=== PATIENT | female | born 2005 | race Caucasian/White ===

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

== ENCOUNTER 2023-04-18 18:19 | Emergency (ER) | payer OTHER ==
[2023-04-18 18:26] VITALS: BP 135/87; PULSE 98; RESP 20; TEMP 98.3; BMI 36.9
[2023-04-18] MEDS ORDERED: predniSONE 10 MG TABLET (UD) PO ONE (19:31)
[2023-04-18] MEDS ORDERED: valACYclovir HCL 500 MG TABLET (FP) PO ONE (19:31)
[2023-04-18] MEDS ORDERED: predniSONE 10 MG TABLET (UD) ONE (19:32)
[2023-04-18] MEDS ORDERED: valACYclovir HCL 500 MG TABLET (FP) ONE (19:32)
[2023-04-18] MEDS ORDERED: predniSONE 20 MG TABLET (UD) ONE (19:33)
== END 2023-04-18 19:46 | disposition home or self-care (01) ==
LOC: JER 18:19
DX: G51.0 Bell's palsy (principal); R20.2 Paresthesia of skin; H91.91 Unspecified hearing loss, right ear; R43.9 Unspecified disturbances of smell and taste
CPT/HCPCS: 99283-25

== ENCOUNTER 2024-01-17 18:27 | Emergency (ER) | payer OTHER ==
[2024-01-17 18:45] VITALS: BP 153/74; PULSE 81; RESP 17; TEMP 97.8; BMI 42.8
[2024-01-17] MEDS ORDERED: METOCLOPRAMIDE HCL INJECTION 10 MG/2 ML VIAL ONE (19:45)
[2024-01-17] MEDS ORDERED: ACETAMINOPHEN INJECTION 100 ML IVPB ONE (19:46)
[2024-01-17] MEDS: ACETAMINOPHEN 1000 MG/100 ML BAG IVPB ONE (20:17)
[2024-01-17] MEDS: METOCLOPRAMIDE HCL INJECTION 10 MG/2 ML VIAL IVPB ONE (20:17)
[2024-01-17] MEDS: SODIUM CHLORIDE 0.9% 500 ML INFUS.BAG IV ONE (20:17)
[2024-01-17 20:22] LABS: BASO % 0.5 % (0-2.0); EOS % 2.8 % (0-4.5); HEMATOCRIT 36.4 % (32.4-45.2); HEMOGLOBIN 12.5 GM/dL (10.7-15.3); LYMPH % 31.4 % (8-40); MCH 24.8 pg (25.7-33.7); MCHC 34.2 g/dl (32.0-36.0); MEAN CELL VOLUME 72.5 fl (80-96); MEAN PLT VOLUME 6.9 fl (7.5-11.1); MONO % 5.7 % (3.8-10.2); NEUT % 59.6 % (42.8-82.8); PLATELET COUNT 386 10^3/uL (134-434); RBC 5.02 M/mm3 (3.60-5.2); RDW 14.7 % (11.6-15.6); WHITE BLOOD COUNT 8.7 K/mm3 (4.0-10.0)
[2024-01-17 20:55] LABS: POTASSIUM 3.9 mmol/L (3.5-5.1)
[2024-01-17 20:57] LABS: ALBUMIN 3.8 g/dl (3.4-5.0); BLOOD UREA NITROGEN 9.9 mg/dL (7-18); CALCIUM 9.5 mg/dL (8.5-10.1)
[2024-01-17 21:00] LABS: CREATININE 0.7 mg/dL (0.55-1.3)
[2024-01-17 21:02] LABS: BILIRUBIN,TOTAL 0.3 mg/dL (0.2-1); TOT PROT 9.2 g/dl (6.4-8.2)
== END 2024-01-17 21:46 | disposition home or self-care (01) ==
LOC: JER 18:27
PROC: 3E030NZ Introduction of Analgesics, Hypnotics, Sedatives into Peripheral Vein, Open Approach (ICD-10-PCS; principal; 2024-01-17)
PROC: 3E030GC Introduction of Other Therapeutic Substance into Peripheral Vein, Open Approach (ICD-10-PCS; 2024-01-17)
DX: R51.9 Headache, unspecified (principal); H53.8 Other visual disturbances
CPT/HCPCS: 36415; 80053; 84703; 85025; 99284-25; J0131

== ENCOUNTER 2024-01-22 11:24 | Emergency (ER) | payer OTHER ==
[2024-01-22 11:35] VITALS: TEMP 98.5; BMI 42.8
[2024-01-22] MEDS ORDERED: methylPREDNISolone NA SUCC 125 MG/2 ML VIAL ONE (12:48)
[2024-01-22] MEDS ORDERED: FAMOTIDINE 20 MG/50 ML IVPB 20 MG/50 ML MG IVPB ONE (12:49)
[2024-01-22 13:13] LABS: BASO % 0.3 % (0-2.0); EOS % 0.4 % (0-4.5); HEMATOCRIT 41.5 % (32.4-45.2); HEMOGLOBIN 13.9 GM/dL (10.7-15.3); LYMPH % 17.4 % (8-40); MCH 24.1 pg (25.7-33.7); MCHC 33.4 g/dl (32.0-36.0); MEAN PLT VOLUME 7.3 fl (7.5-11.1); MONO % 2.6 % (3.8-10.2); NEUT % 79.3 % (42.8-82.8); PLATELET COUNT 429 10^3/uL (134-434); RBC 5.76 M/mm3 (3.60-5.2); RDW 15.3 % (11.6-15.6); WHITE BLOOD COUNT 13.7 K/mm3 (4.0-10.0)
[2024-01-22] MEDS: FAMOTIDINE 20 MG/50 ML IVPB 20 MG/50 ML MG IVPB ONE (13:15)
[2024-01-22] MEDS: LACTATED RINGERS SOLUTION 1000 ML INFUS.BAG IV ONE (13:15)
[2024-01-22] MEDS: methylPREDNISolone NA SUCC 125 MG/2 ML VIAL IVPUSH ONE (13:15)
[2024-01-22 13:25] LABS: EPI CELLS >36 /uL (0-25.1); HYALINE CASTS 0 /uL (0-3.1); PH,URINE 5.5 (5.0-8.0); URINE APPEARANCE CLOUDY; URINE BACTERIA 126 /uL (0-1359); URINE BILIRUBIN NEGATIVE (NEGATIVE); URINE COLOR YELLOW; URINE GLUCOSE (UA) NEGATIVE (NEGATIVE); URINE KETONE TRACE (NEGATIVE); URINE LEUK ESTERASE TRACE (NEGATIVE); URINE NITRITE NEGATIVE (NEGATIVE); URINE PROTEIN TRACE (NEGATIVE); URINE RBC 26 /uL (0-23.9); URINE UROBILINOGEN 0.2 mg/dL (0.2-1.0); URINE WBC 42 /uL (0-25.8)
[2024-01-22 13:30] LABS: POTASSIUM 4.4 mmol/L (3.5-5.1)
[2024-01-22 13:31] LABS: CALCIUM 9.5 mg/dL (8.5-10.1)
[2024-01-22 13:32] LABS: ALBUMIN 3.8 g/dl (3.4-5.0); BLOOD UREA NITROGEN 10.4 mg/dL (7-18); MAGNESIUM 2.2 mg/dL (1.8-2.4)
[2024-01-22 13:35] LABS: CREATININE 0.7 mg/dL (0.55-1.3)
[2024-01-22 13:37] LABS: BILIRUBIN,TOTAL 0.4 mg/dL (0.2-1); TOT PROT 9.1 g/dl (6.4-8.2)
[2024-01-22 14:11] VITALS: BP 126/58; PULSE 92; RESP 19
== END 2024-01-22 14:56 | disposition home or self-care (01) ==
LOC: JERFT 11:24
PROC: 3E033GC Introduction of Other Therapeutic Substance into Peripheral Vein, Percutaneous Approach (ICD-10-PCS; principal; 2024-01-22)
PROC: 3E033GC Introduction of Other Therapeutic Substance into Peripheral Vein, Percutaneous Approach (ICD-10-PCS; 2024-01-22)
PROC: 3E033GC Introduction of Other Therapeutic Substance into Peripheral Vein, Percutaneous Approach (ICD-10-PCS; 2024-01-22)
DX: R21 Rash and other nonspecific skin eruption (principal); M79.89 Other specified soft tissue disorders; R11.0 Nausea; R19.7 Diarrhea, unspecified; L50.9 Urticaria, unspecified
CPT/HCPCS: 36415; 80053; 81003; 83735; 85025; 87086; 87186; 99284-25

== ENCOUNTER 2024-01-24 08:47 | Emergency (ER) | payer OTHER ==
[2024-01-24 08:54] VITALS: RESP 18; BMI 40.6
[2024-01-24] MEDS ORDERED: FAMOTIDINE 20 MG/50 ML IVPB 20 MG/50 ML MG IVPB ONE (09:12)
[2024-01-24] MEDS ORDERED: methylPREDNISolone NA SUCC 125 MG/2 ML VIAL ONE (09:12)
[2024-01-24] MEDS: methylPREDNISolone NA SUCC 125 MG/2 ML VIAL IVPB ONE (09:23)
[2024-01-24] MEDS: FAMOTIDINE 20 MG/50 ML IVPB 20 MG/50 ML MG IVPB ONE (09:23)
[2024-01-24] MEDS: SODIUM CHLORIDE 1,000 ML IV STA (09:23)
[2024-01-24 10:20] VITALS: BP 106/55; PULSE 92; TEMP 98.5
== END 2024-01-24 10:55 | disposition home or self-care (01) ==
LOC: JERFT 08:47
PROC: 3E033GC Introduction of Other Therapeutic Substance into Peripheral Vein, Percutaneous Approach (ICD-10-PCS; principal; 2024-01-24)
PROC: 3E033GC Introduction of Other Therapeutic Substance into Peripheral Vein, Percutaneous Approach (ICD-10-PCS; 2024-01-24)
PROC: 3E033GC Introduction of Other Therapeutic Substance into Peripheral Vein, Percutaneous Approach (ICD-10-PCS; 2024-01-24)
DX: R21 Rash and other nonspecific skin eruption (principal); T78.40XA Allergy, unspecified, initial encounter
CPT/HCPCS: 99284-25